=== PATIENT | male | born 1995 | race Caucasian/White ===

== ENCOUNTER 2020-02-20 19:49 | Emergency (ER) | payer OTHER ==
[~2020-02-20] VITALS: Ht 177.8 cm; Wt 74.8 kg
[2020-02-20] MEDS ORDERED: ESCI10 PO (20:46)
[2020-02-20] MEDS ORDERED: Percocet 5-3251 EACH PO (21:43)
[2020-02-20] MEDS ORDERED: CEPH500 PO (21:43)
== END 2020-02-20 22:36 | disposition home or self-care (01) ==
LOC: ER 19:49
DX: S81.811A Laceration without foreign body, right lower leg, initial encounter (principal); Z23 Encounter for immunization; Z88.5 Allergy status to narcotic agent; V86.56XA Driver of dirt bike or motor/cross bike injured in nontraffic accident, initial encounter
CPT/HCPCS: 12044; 73610; 90471; 90714; 96374-59; 96375-59; 99283-25; A9270; J0690; J3010